=== PATIENT | male | born 1970 | race Caucasian/White ===

== ENCOUNTER 2020-05-28 14:57 | Emergency (ER) | payer BC, SELFPAY ==
[2020-05-28 15:01] VITALS: BP 162/102; PULSE 74; RESP 18; TEMP 36.3; O2SAT 97; BMI 48.9
--- NOTE | 2020-05-28 15:09 | CTR_ITS ---
PROCEDURE INFORMATION: Exam: CT Abdomen And Pelvis With Contrast Exam date and time: 05/28/2020 3:19 PM Age: 49 years old Clinical indication: Abdominal pain; Localized; Left lower quadrant (llq); Prior surgery; Surgery type: Gb lap band; Additional info: Abd pain TECHNIQUE: Imaging protocol: Computed tomography of the abdomen and pelvis with intravenous contrast. Radiation optimization: All CT scans at this facility use at least one of these dose optimization techniques: automated exposure control; mA and/or kV adjustment per patient size (includes targeted exams where dose is matched to clinical indication); or iterative reconstruction. Contrast material: OMNI 300; Contrast volume: 95 ml; Contrast route: INTRAVENOUS (IV); COMPARISON: No relevant prior studies available. RADIATION DOSE METRICS: Total DLP (mGy-cm): 3683.43 FINDINGS: Liver: Diffuse fatty infiltration of the liver. Gallbladder and bile ducts: Cholecystectomy. The bile ducts are normal. Pancreas: Normal. No ductal dilation. Spleen: Normal. No splenomegaly. Adrenal glands: Normal. No mass. Kidneys and ureters: Normal. No hydronephrosis. Stomach and bowel: Unremarkable. No obstruction. No mucosal thickening. Appendix: The appendix is visualized and is normal. Intraperitoneal space: Unremarkable. No free air. No significant fluid collection. Vasculature: Unremarkable. No abdominal aortic aneurysm. Lymph nodes: Calcified right hilar lymph nodes. Urinary bladder: Unremarkable as visualized. Reproductive: Unremarkable as visualized. Bones/joints: Unremarkable. No acute fracture. Soft tissues: Adjustable laparoscopic band around the gastroesophageal junction with port in the left abdominal wall. CT/CT abdomen pelvis w con* [id number] IMPRESSION: 1. No acute abnormality identified in the abdomen or pelvis. Radiation Dose CTDIVOL = (mGy): DLP = 3683.43 (mGy-cm)
--- NOTE | 2020-05-28 15:19 | W.ED.ABDPA2 ---
HPI - Abdominal Pain General: Chief Complaint: Abdominal Pain Stated Complaint: lower left abd pain Time Seen by Provider: 05/28/20 15:05 History of Present Illness: HPI narrative: 49-year-old male presents emergency room complaining of sudden onset of left lower quadrant pain that began this afternoon. He denies any vomiting or diarrhea denies hematochezia hematemesis or coffee-ground denies any dysuria urgency or frequency. No history of renal stones. No hematuria. Patient denies previous colonoscopy but he has had a LAP-BAND including revision for the port for his LAP-BAND. MD elicited complaint: abdominal pain Pertinent past history: other (Previous lap band surgery) Onset (ago): hour(s) Pain Consistency: constant Location: LUQ and LLQ Severity: moderate Quality: cramping Radiation: none Migration to: no migration Exacerbating factors: nothing Relieving factors: nothing Associated Symptoms: Reports GI cramping; Denies anorexia, belching, bloating, change in bowel habits, change in stool character, chills, coffee ground emesis, constipation, diarrhea, dyspepsia, dysuria, excessive flatus, fever(s), heartburn, hematochezia, hematuria, hematemesis, fecal incontinence, loose stools, melena, nausea, poor appetite, syncope and vomiting Review of Systems Const: Denies: fever(s) or chills ENMT: Denies: throat pain, ear or mastoid pain, nasal discharge or nasal congestion Card: Denies: syncope Resp: Denies: dyspnea, productive cough or non-productive cough GI: Reports: GI cramping; Denies: nausea, vomiting, hematemesis, coffee ground emesis, heartburn, diarrhea, constipation, bloating, belching, excessive flatus, fecal incontinence, change in bowel habits, change in stool character, hematochezia or melena : Denies: dysuria or hematuria Skin/Breast: Denies: rash or pruritus PFSH ED PFSH: Medical History (Updated 05/28/20 @ 17:45 by Luis A Gandara DO) HTN (hypertension) Physical Exam Const: COMMON NORMALS: no acute distress GENERAL APPEARANCE: cooperative and comfortable ORIENTATION/CONSCIOUSNESS: Yes awake, Yes oriented to person, Yes oriented to place and Yes oriented to time HENMT: COMMON NORMALS: normocephalic, atraumatic and hearing grossly normal bilaterally HEAD & SCALP: normocephalic and atraumatic Neck/C-Spine: COMMON NORMALS: no JVD Resp: COMMON NORMALS: normal respiratory effort, No retractions, No use of accessory muscles and clear to auscultation bilaterally AUSCULTATION: clear to auscultation bilaterally Cardio: COMMON NORMALS: no JVD, regular rate, regular rhythm and No murmurs present (Cardio) RATE: regular rate RHYTHM: regular rhythm GI: COMMON NORMALS: No hepatosplenomegaly present AUSCULTATION: Yes normoactive bowel sounds PALPATION: Yes Tenderness to palpation present (GI) Details: LLQ, No Guarding due to palpation present (GI) and Yes No hepatosplenomegaly present Extremity: COMMON NORMALS: normal to inspection, capillary refill normal, no clubbing, cyanosis or edema, no calf tenderness and no pedal edema Neuro: SENSORIUM/ORIENTATION: Yes oriented to person, Yes oriented to place and Yes oriented to time Skin: COMMON NORMALS: no rashes or lesions noted GENERAL SKIN EXAM: no rashes or lesions noted Course Vital Signs: Vital signs: Vital Signs Temperature 97.3 F L 05/28/20 15:01 Pulse Rate 74 05/28/20 15:01 Respiratory Rate 18 05/28/20 15:01 Blood Pressure 162/102 05/28/20 15:01 Pulse Oximetry 97 05/28/20 15:01 MDM - Abdominal Pain MDM Narrative: Medical decision making narrative: Symptoms are resolved patient feeling much better. Advised clear liquid diet for next 24 to 48 hours advance as tolerated if he has any worsening symptoms return to emergency room can use Zofran as needed Lab Data: Labs: Lab Results 05/28/20 05/28/20 05/28/20 Range/Units 16:15 16:15 16:47 WBC 13.3 H (4.0-10.0) 10^3/ uL RBC 4.99 (4.1-5.3) 10^6/u L Hgb 15.0 (11.7-16.6) g/dL Hct 46.7 (42.0-52.0) % MCV 93.6 (80-94) fL MCH 30.1 (28.0-34.0) pg MCHC 32.1 (30.0-36.0) g/dL RDW 13.4 (12.1-15.1) % Plt Count 274 (130-400) 10^3/c mm MPV 9.0 (7.4-10.4) fL Neut % (Auto) 86.0 % Lymph % (Auto) 7.9 % [place] % (Auto) 5.2 % Eos % (Auto) 0.2 % Baso % (Auto) 0.3 % Neut # (Auto) 11.46 H (1.8-7.7) 10^3/u L Lymph # (Auto) 1.1 (0.8-4.8) 10^3/u L [place] # (Auto) 0.7 (0.2-0.9) 10^3/u L Eos # (Auto) 0.0 (0.0-0.8) 10^3/u L Baso # (Auto) 0.0 (0.0-0.1) 10^3/u L Nucleated RBC % (a uto) 0 % Nucleated RBCs # 0.0 /100WBC Sodium 140 (136-145) mmol/L Potassium 4.3 (3.5-5.1) mmol/L Chloride 105 (98-107) mmol/L Carbon Dioxide 26 (22-29) mmol/L Anion Gap 13.3 (5-19) BUN 12 (6-20) mg/dL Creatinine 1.0 (0.7-1.2) mg/dL GFR Calculation 80.1 L (90-130) mL/min Glucose 107 (65-115) mg/dL Calculated Osmolal ity 290 (285-295) mOsm/k g Calcium 9.7 (8.5-10.5) mg/dL Total Bilirubin 0.5 (0.15-1.2) mg/dL AST 19 (0-40) U/L ALT 26 (0-41) U/L Alkaline Phosphata se 89 (40-130) IU/L Total Protein 7.6 (6.6-8.7) g/dL Albumin 3.9 (3.5-5.2) g/dL Globulin 3.7 (1.3-4.6) g/dL Lipase 14 (13-60) U/L Urine Color Yellow (Yellow) Urine Appearance Clear (CLEAR) Urine pH 7 (5-7) Ur Specific Gravit y 1.020 (1.005-1.030) Urine Protein Neg (Negative) Urine Glucose (UA) Norm (Normal) Urine Ketones 1+ H (Negative) Urine Blood 3+ H (Negative) Urine Nitrate Negative (Negative) Urine Bilirubin Neg (Negative) Urine Urobilinogen Norm (Negative) mg/dL Ur Leukocyte Donna ase Negative (Negative) Urine RBC 0-4 H (0-2) /hpf Urine WBC 0-4 H (0-5) /hpf Ur Squamous Epith Cells 0-4 H (0-5) /hpf Amorphous Sediment Not Reportable Urine Bacteria Trace (NONE) /hpf Hyaline Casts 10-15 H /lpf Coarse Granular Ca sts 0-4 H /lpf Urine Mucus Trace /hpf Discharge Plan Discharge Patient Disposition: Home Clinical Impression: Abdominal pain Condition: Stable Prescriptions: New Zofran 4 mg tablet 4 mg PO Q6H PRN (Reason: nausea and vomiting) Qty: 20 RF: 0 No Action sucralfate 1 gram tablet 1 g PO QID RF: 0 phentermine 37.5 mg tablet 37.5 mg PO DAILY@0800 RF: 0 amlodipine 5 mg tablet 5 mg PO DAILY@1999 RF: 0 levothyroxine 25 mcg tablet 25 mcg PO DAILY@0700 RF: 0 famotidine 20 mg Tablet 20 mg PO BID@0800,1999 RF: 0 lisinopril 40 mg tablet 40 mg PO DAILY@0800 RF: 0 bupropion HCl 150 mg tablet extended release 24 hr 150 mg PO DAILY@0800 RF: 0 Discharge Orders: Discharge ED (Routine); Ordered 05/28/20 Ordered By: Luis A Gandara Referrals: WILLIAM CHRISTENSEN MD [Primary Care Provider] - Discharge Diet: Clear Liquid Discharge Activity: Increase activity as tolerated Patient Instructions: Abdominal Pain (ED) Activity Restrictions/Additional Instructions: Return if you have recurrence of symptoms or worsening symptoms. Coding Level of Care Code ED Intelligence [employer] for [employer] Fwd Exam Comprehensive
[2020-05-28] MEDS: ondansetron 2 mg/ML SDV 2 mL 4 MG IVP (16:26)
[2020-05-28] MEDS: sodium chloride 0.9% 1,000 ML 999 ML IV (16:26)
[2020-05-28 16:32] LABS: Basophils % 0.3 %; Eosinophils % 0.2 %; Hematocrit 46.7 % (42.0-52.0); Lymphocytes # 1.1 10^3/uL (0.8-4.8); Lymphocytes % 7.9 %; Mean Corpuscular HGB Conc 32.1 g/dL (30.0-36.0); Mean Corpuscular Hemoglobin 30.1 pg (28.0-34.0); Mean Corpuscular Volume 93.6 fL (80-94); Monocytes # 0.7 10^3/uL (0.2-0.9); Monocytes % 5.2 %; Neutrophils # 11.46 10^3/uL (1.8-7.7); Nucleated Red Blood Cells % 0 %; Platelet Count 274 10^3/cmm (130-400); Red Blood Count 4.99 10^6/uL (4.1-5.3); Red Cell Distribution Width 13.4 % (12.1-15.1); White Blood Count 13.3 10^3/uL (4.0-10.0)
[2020-05-28 16:45] LABS: Alanine Aminotransferase 26 U/L (0-41); Albumin Level 3.9 g/dL (3.5-5.2); Alkaline Phosphatase 89 IU/L (40-130); Aspartate Amino Transferase 19 U/L (0-40); Blood Urea Nitrogen 12 mg/dL (6-20); Calcium 9.7 mg/dL (8.5-10.5); Carbon Dioxide 26 mmol/L (22-29); Chloride 105 mmol/L (98-107); Globulin 3.7 g/dL (1.3-4.6); Glomerular Filtration Rate 80.1 mL/min (90-130); Glucose 107 mg/dL (65-115); Lipase 14 U/L (13-60); Osmolality Calculated 290 mOsm/kg (285-295); Sodium 140 mmol/L (136-145); Total Bilirubin 0.5 mg/dL (0.15-1.2); Total Protein 7.6 g/dL (6.6-8.7)
[2020-05-28 16:48] LABS: Anion Gap 13.3 (5-19); Potassium 4.3 mmol/L (3.5-5.1)
[2020-05-28] MEDS: iohexol 300 mg/mL 100 mL Btl IV (17:00)
[2020-05-28 17:37] LABS: Urine Appearance Clear (CLEAR); Urine Color Yellow (Yellow); pH Urine 7 (5-7)
[2020-05-28 17:38] LABS: Add Urine Culture? No; Add Urine Microscopic? YES; Bacteria Urine TRACE /hpf; Bilirubin Urine Neg (Negative); Blood Urine 3+ (Negative); Coarse Granular Casts Urine 0-4 /lpf; Glucose Urine UA Norm (Normal); Ketones Urine 1+ (Negative); Leukocyte Esterase Urine Negative (Negative); Mucus Urine TRACE /hpf; Nitrate Urine Negative (Negative); Protein Urine Neg (Negative); RBC Urine 0-4 /hpf (0-2); Squamous Epithelial Cell Urine 0-4 /hpf (0-5); Urobilinogen Urine Norm (Negative); WBC Urine 0-4 /hpf (0-5)
== END 2020-05-28 17:51 | disposition home or self-care (01) ==
PROVIDERS: Emergency Provider Family Medicine; PCP Family Medicine
DX: R10.9 Unspecified abdominal pain (principal); I10 Essential (primary) hypertension
CPT/HCPCS: 12345; 74177; 80053; 81001; 83690; 85025; 96361; 96374; 99283; J2405; J7030; Q9967